=== PATIENT | female | born 1945 | race Caucasian/White ===

== ENCOUNTER 2017-09-03 21:10 | Emergency (ER) | payer OTHER ==
[~2017-09-03] VITALS: Ht 152.4 cm; Wt 81.0 kg
[~2017-09-03 21:10] MED LIST: ASPI81TA28 PO; ATV1 PO; CHOL100010 PO; DVN80125 PO; INSUINJ SC; LEVO137T3 PO; METO25TA3 PO; MULT-506 PO; RXC5 PO; SIMV20TA2 PO
[2017-09-03 21:15] VITALS: Ht 152.4 cm; Wt 81.0 kg
--- NOTE | 2017-09-03 21:58 | EMERGENCY ROOM VISIT NOTE ---
History Report prepared by Thierry: Alen Estrada Under the Supervision of: Dr. Jose Viera M.D. 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 Per granddaughter, the patient was sitting and watching television after dinner and started "twitching and shaking." She notes the patient was semi-responsive. The patient notes eating a salad with cheese and ranch dressing for dinner a little later than normal. She has had a similar episode before. The patient's blood sugar was 28. Her gave her icing. She notes taking her Humulin twice a day and took her prescribed dose just before dinner. 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 She denies any chest pain or trauma and currently feels fine. Her blood sugar is currently 70. 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 She denies any trauma. She was hypoglycemic at blood sugar 28. Review of Systems See HPI for pertinent positives & negatives. A total of 10 systems reviewed and were otherwise negative. Past Medical & Surgical Medical Problems: (1) Lumbar stenosis with neurogenic claudication Old medical records were reviewed. Nurse's notes were reviewed and I agree with. Family History No pertinent family history reported. Social History Smoking Status: Never Smoker Alcohol Use: none Drug Use: none Marital Status: Housing Status: lives with significant other Current/Historical Medications Scheduled Aspirin (Aspirin Ec), 81 MG PO QAM Cholecalciferol (Vitamin D), 1,000 INTER.UNIT PO QAM Insulin Nph (Humulin-N), 14 UNITS SC QAM Insulin Nph (Humulin-N), 12 UNITS SC QPM Levothyroxine Sodium (Levothyroxine Sodium), 1 TAB PO QAM Metoprolol Succinate (Toprol Xl), 25 MG PO QAM Multivitamin (Multivitamin), 1 TAB PO QAM Simvastatin (Zocor), 20 MG PO QPM Valsartan/Hctz (Diovan Hct), 1 TAB PO QAM Scheduled PRN Lorazepam (Lorazepam), 1 MG PO Q6H PRN for Anxiety Oxycodone HCl (Oxycodone HCl), 5-10 MG PO Q4H PRN for Pain Allergies Coded Allergies: NO KNOWN DRUG ALLERGIES (Unverified Allergy, Unknown, NONE, 01/29/16) Gluten (Unverified Adverse Reaction, Unknown, DIARRHEA, 01/29/16) Physical Exam Vital Signs Date Time Temp Pulse Resp B/P (MAP) Pulse Ox O2 Delivery O2 Flow Rate FiO2 09/04/17 00:18 87 150/88 09/04/17 00:07 36.4 09/03/17 23:27 36.0 82 16 155/88 94 Room Air 09/03/17 21:24 81 09/03/17 21:15 35.5 81 14 165/88 95 Room Air Physical Exam General: Non-ill appearing older female in no acute distress. HEENT: Normal cephalic atraumatic. Pupils are equal round and reactive to light. Extraocular movements are intact. Oropharynx is pink with moist mucous membranes. No swelling of the mouth lips or tongue. Neck: Supple with a midline trachea. No meningeal signs or stiffness, no JVD or bruits. No Stridor. Chest: Clear to auscultation bilaterally. No wheezes or rhonchi. No increased work of breathing. Heart: regular rate and rhythm. Abdomen: Soft nontender, nondistended without rebound guarding or rigidity. Extremities: No cyanosis clubbing or edema. No calf tenderness or assymetry Spine/Back. Non tender to palpation. No CVA tenderness Skin: Good turgor without rashes. Neurologic exam: Cranial nerves two through 12 are intact. Motor and sensation are intact and symmetrical throughout. Medical Decision & Procedures Laboratory Results 09/03/17 22:58 Red Blood Count 3.63, Mean Corpuscular Volume 96.1, Mean Corpuscular Hemoglobin 32.0, Mean Corpuscular Hemoglobin Concent 33.2, Mean Platelet Volume 9.8, Neutrophils (%) (Auto) 86.0, Lymphocytes (%) (Auto) 7.8, Monocytes (%) (Auto) 5.0, Eosinophils (%) (Auto) 0.7, Basophils (%) (Auto) 0.3, Neutrophils # (Auto) 8.15, Lymphocytes # (Auto) 0.74, Monocytes # (Auto) 0.47, Eosinophils # (Auto) 0.07, Basophils # (Auto) 0.03 09/03/17 22:58 Test 09/03/17 22:58 09/03/17 23:24 White Blood Count 9.48 K/uL (4.8-10.8) Red Blood Count 3.63 M/uL (4.2-5.4) Hemoglobin 11.6 g/dL (12.0-16.0) Hematocrit 34.9 % (37-47) Mean Corpuscular Volume 96.1 fL (80-100) Mean Corpuscular Hemoglobin 32.0 pg (25-34) Mean Corpuscular Hemoglobin Concent 33.2 g/dl (32-36) Platelet Count 205 K/uL (130-400) Mean Platelet Volume 9.8 fL (7.4-10.4) Neutrophils (%) (Auto) 86.0 % Lymphocytes (%) (Auto) 7.8 % Monocytes (%) (Auto) 5.0 % Eosinophils (%) (Auto) 0.7 % Basophils (%) (Auto) 0.3 % Neutrophils # (Auto) 8.15 K/uL (1.4-6.5) Lymphocytes # (Auto) 0.74 K/uL (1.2-3.4) Monocytes # (Auto) 0.47 K/uL (0.11-0.59) Eosinophils # (Auto) 0.07 K/uL (0-0.5) Basophils # (Auto) 0.03 K/uL (0-0.2) RDW Standard Deviation 48.0 fL (36.4-46.3) RDW Coefficient of Variation 13.6 % (11.5-14.5) Immature Granulocyte % (Auto) 0.2 % Immature Granulocyte # (Auto) 0.02 K/uL (0.00-0.02) Anion Gap 7.0 mmol/L (3-11) Est Creatinine Clear Calc Drug Dose 57.1 ml/min Estimated GFR () 80.5 Estimated GFR (Non- 69.4 BUN/Creatinine Ratio 40.4 (10-20) Calcium Level 8.7 mg/dl (8.5-10.1) Total Bilirubin 0.2 mg/dl (0.2-1) Direct Bilirubin < 0.1 mg/dl (0-0.2) Aspartate Amino Transf (AST/SGOT) 27 U/L (15-37) Alanine Aminotransferase (ALT/SGPT) 34 U/L (12-78) Alkaline Phosphatase 93 U/L (45-117) Troponin I < 0.015 ng/ml (0-0.045) Total Protein 7.3 gm/dl (6.4-8.2) Albumin 3.5 gm/dl (3.4-5.0) Lipase 86 U/L (73-393) Bedside Glucose 121 mg/dl (70-90) Laboratory studies as stated above per my review. ECG Indication: other (hypoglycemia) Rate (beats per minute): 81 Rhythm: normal sinus Findings: no acute ischemic change, other (Poor R wave progression) Change: no significant change (01/10/2016) ED Course 2138: Past medical records reviewed. The patient was evaluated in room C2, and a complete history and physical examination were performed. 0015: I reassessed the patient at this time. She is feeling better and resting comfortably. I discussed the results and treatment plan with the patient. I answered all pertaining questions that she had. She expressed understanding and verbalized agreement. The patient will be discharged home. Medical Decision Differentials include, but are not limited to: hypoglycemia, electrolyte or metabolic abnormality, cardiac disease, and arrhythmia This patient comes in as described above. She episode of altered level of consciousness and was found to be profoundly hypoglycemic. Her gave her oral glucose in the form of icing and she is doing much better. Blood sugar here is in the 70s and we did feed her further and her blood sugar remained in the 100s and is feeling fine and at her baseline. EKG does not suggest acute coronary syndrome or arrhythmia. She has no acute electrolyte or metabolic abnormalities . She was observed for several hours and blood sugar and sugar was rechecked several times. She does not think she ate enough at home in they do feel very comfortable going home. Presents I'm going to keep an eye on her and they will check the blood sugar before bedtime ensure that she runs if anything a little high this evening return if: worsening symptoms, any new problems or concerns. Medication Reconcilliation Current Medication List: was personally reviewed by me Blood Pressure Screening Patient's blood pressure: Elevated blood pressure Impression Primary Impression: Hypoglycemia Additional Impression: Altered mental status Scribe Attestation The scribe's documentation has been prepared under my direction and personally reviewed by me in its entirety. I confirm that the note above accurately reflects all work, treatment, procedures, and medical decision making performed by me. Departure Information Dispostion Home / Self-Care Referrals Heath Sofia D.O. (PCP) Forms HOME CARE DOCUMENTATION FORM, IMPORTANT VISIT INFORMATION, WORK / SCHOOL INSTRUCTIONS Patient Instructions My [facility] Additional Instructions Rest. Check your blood sugar frequently and specifically before bedtime and if anything run higher than normal tonight Return if: worsening of symptoms, problems with blood sugar, any new problems or concerns Follow-up with your doctor tomorrow for recheck Problem Qualifiers
[2017-09-03 23:15] LABS: BASO % 0.3 %; BASO ABS # 0.03 K/uL (0-0.2); COMPLETE YES; EOS % 0.7 %; HEMATOCRIT 34.9 % (37-47); IG% 0.2 %; LYMPH % 7.8 %; LYMPH ABS # 0.74 K/uL (1.2-3.4); MEAN CELL VOLUME 96.1 fL (80-100); MEAN CORPUSCULAR HGB CONC 33.2 g/dl (32-36); MEAN PLATELET VOLUME 9.8 fL (7.4-10.4); PLATELET COUNT 205 K/uL (130-400); RED BLOOD COUNT 3.63 M/uL (4.2-5.4); WHITE BLOOD COUNT 9.48 K/uL (4.8-10.8)
[2017-09-03 23:27] VITALS: O2SAT 94
[2017-09-03 23:33] LABS: BLOOD UREA NITROGEN 34 mg/dl (7-18); CREATININE 0.84 mg/dl (0.60-1.20); GLUCOSE 110 mg/dl (70-99)
[2017-09-03 23:34] LABS: ALT/SGPT 34 U/L (12-78); BUN/CREATININE RATIO 40.4 (10-20); CALCIUM 8.7 mg/dl (8.5-10.1); CARBON DIOXIDE 28 mmol/L (21-32); CHLORIDE 100 mmol/L (98-107); POTASSIUM 3.7 mmol/L (3.5-5.1); SODIUM 136 mmol/L (136-145)
[2017-09-03 23:39] LABS: ALKALINE PHOSPHATASE 93 U/L (45-117); AST/SGOT 27 U/L (15-37)
[2017-09-04 00:07] VITALS: TEMP 36.4
[2017-09-04 00:18] VITALS: BP 150/88; PULSE 87
== END 2017-09-04 00:19 | disposition home or self-care (01) ==
LOC: EDBD 21:10 → C.EDC 21:12
DX: E16.2 Hypoglycemia, unspecified (principal); R41.82 Altered mental status, unspecified; Z79.4 Long term (current) use of insulin; Z79.82 Long term (current) use of aspirin